=== PATIENT | male | born 1985 | race Two or more races ===

== ENCOUNTER 2023-02-22 15:54 | Emergency (ER) | payer SELFPAY ==
[~2023-02-22] VITALS: Ht 165.1 cm; Wt 78.7 kg
[2023-02-22 17:07] VITALS: BP 123/70; PULSE 70; RESP 12; TEMP 97.9; O2SAT 97
[2023-02-22] MEDS ORDERED: IBUPROFEN 800 MG TAB PO ONE (17:15)
[2023-02-22] MEDS ORDERED: IBUP-1456 PO (17:20)
== END 2023-02-22 17:25 | disposition home or self-care (01) ==
LOC: ER 15:54
DX: S42.021A Displaced fracture of shaft of right clavicle, initial encounter for closed fracture (principal); V98.8XXA Other specified transport accidents, initial encounter; Y93.89 Activity, other specified; Y92.89 Other specified places as the place of occurrence of the external cause; Y99.8 Other external cause status
CPT/HCPCS: 73000